=== PATIENT | female | born 1960 ===

== ENCOUNTER 2018-02-01 09:09 | Emergency (ER) | payer OTHER ==
[2018-02-01 09:09] VITALS: BMI 26.2
[2018-02-01 09:17] VITALS: TEMP 98
[2018-02-01] MEDS ORDERED: Sodium Chloride 0.9% 1,000 ML IV ONE (09:36)
[2018-02-01] MEDS ORDERED: Atropine-Diphenoxylate 0.025-2.5 mg Tab PO STA (09:36)
--- NOTE | 2018-02-01 09:36 | C.PDOC ---
History Of Present Illness 57 year old female presents to the ED complaining of intermittent abdominal pain , nausea, and diarrhea since yesterday. She states abdominal pain is now resolved but still with nausea. She denies any fever. PSH negative. INTERMIT ABD PAIN, NAUSEA AND DIARRHEA SINCE YEST. ABD PAIN NOW RESOLVED BUT STILL W NAUSEA. NO FEVER. PSH NEG EXAM MILD DIST NONTOXIC HEENT MMM ANICTERIC ABD SOFT NT ND NO R/G GOOD TURGOR REMAINDER NEG Time Seen by Provider: 02/01/18 09:27 Chief Complaint (Nursing): Abdominal Pain History Per: Patient History/Exam Limitations: no limitations Onset/Duration Of Symptoms: Days Current Symptoms Are (Timing): Still Present Associated Symptoms: Nausea, Diarrhea. denies: Fever Past Medical History Reviewed: Historical Data, Nursing Documentation, Vital Signs Vital Signs: Last Vital Signs Temp 98 F 02/01/18 09:15 Pulse 74 02/01/18 09:15 Resp 16 02/01/18 09:15 BP 149/91 H 02/01/18 09:15 Pulse Ox 100 02/01/18 09:52 - Medical History PMH: Arthritis, Diabetes, Hyperlipidemia, Rheumatoid Arthritis Denies: Chronic Kidney Disease Surgical History: No Surg Hx - [facility] Procedures DX ULTRASOUND-HEAD/NECK (12/30/12) PERCUTAN NEEDLE BX OF THYROID GLAND (12/30/12) Family History: States: No Known Family Hx - Social History Hx Alcohol Use: No Hx Substance Use: No - Immunization History Hx Tetanus Toxoid Vaccination: No Hx Influenza Vaccination: No Hx Pneumococcal Vaccination: No Review Of Systems Except As Marked, All Systems Reviewed And Found Negative. Constitutional: Negative for: Fever Gastrointestinal: Positive for: Nausea, Abdominal Pain, Diarrhea. Negative for : Vomiting Physical Exam - Physical Exam Appears: Non-toxic, Other (Mild distress) Skin: Warm, Dry, Other (Good turgor ) Head: Normacephalic Eye(s): bilateral: Other (MMM, anicteric ) Nose: Normal Oral Mucosa: Moist Neck: Supple Chest: Symmetrical Cardiovascular: Rhythm Regular Respiratory: Normal Breath Sounds, No Rales, No Rhonchi, No Wheezing Gastrointestinal/Abdominal: Soft, No Tenderness, No Distention, No Guarding, No Rebound Extremity: Normal ROM Neurological/Psych: Oriented x3, Normal Speech Gait: Steady ED Course And Treatment - Laboratory Results Result Diagrams: 02/01/18 09:51 02/01/18 09:51 O2 Sat by Pulse Oximetry: 100 (RA) Pulse Ox Interpretation: Normal Progress - Re-Evaluation Re-evaluation Note: 02/01/18 10:39 NAUSEA RESOLVED. NO PAIN SINCE PRIOR EVAL. - Data Reviewed Data Reviewed: Lab, Old records Disposition Counseled Patient/Family Regarding: Studies Performed, Diagnosis, Need For Followup, Rx Given - Disposition Referrals: [facility] [Outside] [facility] [Outside] Disposition: HOME/ ROUTINE Disposition Time: 10:40 Condition: IMPROVED Prescriptions: Ondansetron [Zofran Odt] 4 mg PO TID PRN #9 odt PRN Reason: Nausea/Vomiting Instructions: Viral Gastroenteritis, Adult (DC) Forms: [facility] (Ecuadorean) Print Language: BENGALI - Clinical Impression Clinical Impression: Nausea, Diarrhea
[2018-02-01] MEDS ORDERED: Sodium Chloride 0.9% 1,000 ML ONE (09:57)
[2018-02-01] MEDS ORDERED: Atropine-Diphenoxylate 0.025-2.5 mg Tab ONE (09:57)
[2018-02-01 10:02] LABS: BASO # 0.1 K/uL (0.0-0.2); BASO % 0.9 % (0.0-2.0); EOS # 0.4 K/uL (0.0-0.7); EOS % 4.3 % (0.0-4.0); HEMOGLOBIN 13.2 g/dL (11.0-16.0); LYMPH # 2.8 K/uL (1.0-4.3); LYMPH % 29.7 % (20.0-40.0); MEAN CORPUSCULAR HEMOGLOBIN 31.8 pg (27.0-31.0); MEAN CORPUSCULAR HGB CONC 33.9 g/dL (33.0-37.0); MEAN PLATELET VOLUME 9.3 fL (7.2-11.7); MONO # 0.5 K/uL (0.0-0.8); MONO % 5.6 % (0.0-10.0); NEUT # 5.7 K/uL (1.8-7.0); NEUT % 59.5 % (50.0-75.0); RBC 4.17 Mil/uL (3.80-5.20); RED CELL DISTRIBUTION WIDTH 14.2 % (11.5-14.5); WHITE BLOOD COUNT 9.6 K/uL (4.8-10.8)
[2018-02-01 10:06] LABS: MEAN CELL VOLUME 93.6 fL (81.0-99.0)
[2018-02-01 10:08] LABS: ALB/GLOB RATIO 1.5 (1.0-2.1); ALBUMIN 4.6 g/dL (3.5-5.0); ALT/SGPT 30 U/L (9-52); AST/SGOT 21 U/L (14-36); BLOOD UREA NITROGEN 11 mg/dL (7-17); GFR AFRICAN-AMERICAN > 60; GFR NON-AFRICAN AMERICAN > 60; LIPASE 108 U/L (23-300)
[2018-02-01 10:15] LABS: URINE BILIRUBIN NEGATIVE (NEGATIVE); URINE BLOOD NEGATIVE (NEGATIVE); URINE CLARITY Clear (Clear); URINE COLOR Colorless (YELLOW); URINE GLUCOSE (UA) NORMAL (Normal); URINE LEUKOCYTE ESTERASE NEG Leu/uL (Negative); URINE PROTEIN NEGATIVE (NEGATIVE); URINE UROBILINOGEN NORMAL mg/dL (0.2-1.0)
[2018-02-01 10:48] VITALS: BP 101/74; PULSE 64; RESP 19; O2SAT 95
== END 2018-02-01 11:16 | disposition home or self-care (01) ==
LOC: MERGE 09:09 → C.ER 09:09
DX: R11.0 Nausea (principal); R19.7 Diarrhea, unspecified; E11.9 Type 2 diabetes mellitus without complications; E78.5 Hyperlipidemia, unspecified; M06.9 Rheumatoid arthritis, unspecified
CPT/HCPCS: 80053; 81001; 82948; 83690; 85025; 96361; 96374; 99284; J2405; J7030